=== PATIENT | female | born 1995 | race African-American/Black ===

== ENCOUNTER 2019-03-16 11:36 | Emergency (ER) | payer SELFPAY ==
[2019-03-16 12:19] LABS: #Basophils 0.1 thou/uL (0.0-0.2); #Eosinphils 0.1 thou/uL (0.0-0.7); #Lymphocytes 2.2 thou/uL (1.20-3.40); #Monocytes 0.6 thou/uL (0.11-0.59); #Neutrophils 3.8 thou/uL (1.40-6.50); %Basophils 0.8 % (0.0-1.0); %Eosinophils 1.9 % (0.0-10.0); %Lymphocytes 32.1 % (21.0-51.0); %Monocytes 8.2 % (0.0-10.0); %Neutrophils 57.1 % (42.0-75.0); Hemoglobin 15.1 g/dL (12.0-16.0); Mean Corpuscular HGB CONC 33.2 g/dL (32.0-36.0); Mean Corpuscular Hemoglobin 29.9 pg (27.0-31.0); Mean Platelet Volume 8.9 fL (7.4-10.4); Platelet Count 122 thou/uL (130-400); RBC Distribution Width 12.4 % (11.5-14.5); Red Blood Cell (RBC) Count 5.07 mill/uL (4.20-5.40); White Blood Cell (WBC) Count 6.7 thou/uL (4.8-10.8)
[2019-03-16 12:25] LABS: Bilirubin Negative (Negative); Blood, Urine Negative (Negative); Clarity Clear (Clear); Glucose, Urine (Dipstick) Normal (Negative); Leukocyte Negative Leu/uL (Negative); Nitrite Negative (Negative); Protein, Urine (Dipstick) Negative (Neg-Trace); Urobilinogen Normal mg/dL (Less than 2)
[2019-03-16 12:28] LABS: Pregnancy Test - Urine (BHCG) Negative (Negative); Pregu Control Background? CLEAR/WHITE (CLR/WHITE); Pregu Control Bar Appear? YES (CONTROL BAR)
[2019-03-16 12:40] LABS: ALT (SGPT) 10 U/L (8-55); AST (SGOT) 13 U/L (5-34); Albumin 3.4 g/dL (3.5-5.0); Alkaline Phosphatase 44 U/L (40-150); Anion Gap 10 mmol/L (10-20); BUN (Urea Nitrogen) 7 mg/dL (7.0-18.7); Bilirubin, Total Less than 0.2 mg/dL (0.2-1.2); Calc. Creatinine Clearance 0 mL/min (70-130); Calcium 8.7 mg/dL (7.8-10.44); Carbon Dioxide 22 mmol/L (22-29); Chloride 108 mmol/L (98-107); Estimated GFR-MDRD Greater than 90; Globulin 1.8 g/dL (2.4-3.5); Glucose 87 mg/dL (70-105); Potassium 3.8 mmol/L (3.5-5.1); Protein, Total 5.2 g/dL (6.0-8.3); Sodium 136 mmol/L (136-145)
== END 2019-03-16 13:00 | disposition home or self-care (01) ==
LOC: ERS 11:36
DX: R55 Syncope and collapse (principal)
CPT/HCPCS: 36415; 80053; 81003; 81025; 85025; 93005

== ENCOUNTER 2020-03-03 03:50 | Emergency (ER) | payer SELFPAY ==
[2020-03-03] MEDS ORDERED: Fluorescein Opthalmic Strip ONE (04:08)
[2020-03-03] MEDS ORDERED: Proparacaine 0.5% Opth 15 ML BOT ONE (04:08)
== END 2020-03-03 04:23 | disposition home or self-care (01) ==
LOC: ERS 03:50
DX: H57.12 Ocular pain, left eye (principal); W21.05XA Struck by basketball, initial encounter; Y93.67 Activity, basketball
CPT/HCPCS: 99283

== ENCOUNTER 2020-08-09 13:52 | Emergency (ER) | payer SELFPAY ==
[2020-08-09] MEDS ORDERED: Ondansetron ODT 4 MG TAB ONE ×2 (13:56→16:28)
[2020-08-09] MEDS ORDERED: Haloperidol Lactate 5 MG/ML VIAL ONE (16:19)
[2020-08-09] MEDS ORDERED: Metoclopramide HCl 10 MG/2 ML VIAL ONE (16:19)
[2020-08-09] MEDS ORDERED: diphenhydrAMINE 50 MG/ML VIAL ONE (16:28)
[2020-08-09 16:39] LABS: #Lymphocytes 1.1 thou/uL (1.20-3.40); #Monocytes 0.4 thou/uL (0.11-0.59); #Neutrophils 7.9 thou/uL (1.40-6.50); %Basophils 0.4 % (0.0-1.0); %Eosinophils 0.1 % (0.0-10.0); %Lymphocytes 11.4 % (21.0-51.0); %Monocytes 4.5 % (0.0-10.0); %Neutrophils 83.6 % (42.0-75.0); Hemoglobin 13.8 g/dL (12.0-16.0); Mean Corpuscular HGB CONC 33.2 g/dL (32.0-36.0); Mean Corpuscular Hemoglobin 28.8 pg (27.0-31.0); Mean Corpuscular Volume 86.9 fL (78.0-98.0); Mean Platelet Volume 9.2 fL (7.4-10.4); Platelet Count 187 thou/uL (130-400); RBC Distribution Width 12.6 % (11.5-14.5); Red Blood Cell (RBC) Count 4.79 mill/uL (4.20-5.40); White Blood Cell (WBC) Count 9.4 thou/uL (4.8-10.8)
[2020-08-09 16:56] LABS: BHCG - Serum Negative (NEGATIVE); Pregs Control Background? CLEAR/WHITE (CLR/WHITE); Pregs Control Bar Appear? YES (CONTROL BAR)
[2020-08-09 16:58] LABS: ALT (SGPT) 17 U/L (8-55); AST (SGOT) 18 U/L (5-34); Albumin 4.7 g/dL (3.5-5.0); Alkaline Phosphatase 79 U/L (40-110); Anion Gap 14 mmol/L (10-20); BUN (Urea Nitrogen) 7 mg/dL (7.0-18.7); Bilirubin, Total 0.4 mg/dL (0.2-1.2); CK (CPK) 229 U/L (29-168); Calc. Creatinine Clearance 0 mL/min (70-130); Calcium 9.6 mg/dL (7.8-10.44); Carbon Dioxide 27 mmol/L (22-29); Chloride 105 mmol/L (98-107); Globulin 3.4 g/dL (2.4-3.5); Glucose 102 mg/dL (70-105); Lipase 17 U/L (8-78); Potassium 3.9 mmol/L (3.5-5.1); Protein, Total 8.1 g/dL (6.0-8.3); Sodium 142 mmol/L (136-145)
== END 2020-08-09 17:24 | disposition home or self-care (01) ==
LOC: ERS 13:52
DX: E86.0 Dehydration (principal); R11.2 Nausea with vomiting, unspecified
CPT/HCPCS: 80053; 82550; 83690; 84703; 85025; 96365; 96375; J1200; J1630; J2765; Q0162

== ENCOUNTER 2021-10-28 23:51 | Emergency (ER) | payer OTHER, SELFPAY | END 2021-10-29 00:30 | LOC: ERS 23:51 | DX: S00.83XA Contusion of other part of head, initial encounter (principal); S09.90XA Unspecified injury of head, initial encounter; V49.40XA Driver injured in collision with unspecified motor vehicles in traffic accident, initial encounter | CPT/HCPCS: 99283 ==

== ENCOUNTER 2022-07-03 16:57 | Emergency (ER) | payer MEDICAID ==
[2022-07-03 18:44] LABS: #Eosinphils 0.2 thou/uL (0.0-0.7); #Lymphocytes 0.7 thou/uL (1.20-3.40); #Monocytes 0.6 thou/uL (0.11-0.59); #Neutrophils 5.4 thou/uL (1.40-6.50); %Basophils 0.4 % (0.0-1.0); %Eosinophils 2.7 % (0.0-10.0); %Monocytes 8.6 % (0.0-10.0); %Neutrophils 78.3 % (42.0-75.0); Hemoglobin 10.9 g/dL (12.0-16.0); Mean Corpuscular HGB CONC 33.8 g/dL (32.0-36.0); Mean Corpuscular Hemoglobin 30.4 pg (27.0-31.0); Mean Corpuscular Volume 89.9 fl (78.0-98.0); Mean Platelet Volume 8.9 fL (7.4-10.4); Platelet Count 132 10x3/uL (130-400); RBC Distribution Width 13.1 % (11.5-14.5); White Blood Cell (WBC) Count 6.9 10x3/uL (4.8-10.8)
[2022-07-03 18:55] LABS: Bilirubin Negative (Negative); Blood, Urine 1+ (Negative); Clarity Turbid (Clear); Glucose, Urine (Dipstick) Normal (Negative); Ketone, Urine Negative (Negative); Leukocyte Negative Leu/uL (Negative); Nitrite Negative (Negative); Protein, Urine (Dipstick) 30 mg/dL (Neg-Trace); RBC/HPF 0-3 HPF (0-3); Renal Epithelial 0-3 HPF (None Seen); Urobilinogen 3 mg/dL (Less than 2); WBC/HPF 0-3 HPF (0-3)
[2022-07-03 19:06] LABS: Bacteria/HPF 3+ HPF (None Seen)
[2022-07-03 19:08] LABS: ALT (SGPT) 27 U/L (8-55); AST (SGOT) 26 U/L (5-34); Albumin 3.5 g/dL (3.5-5.0); Alkaline Phosphatase 63 U/L (40-110); Anion Gap 11 mmol/L (10-20); BUN (Urea Nitrogen) 4 mg/dL (7.0-18.7); Bilirubin, Total 0.3 mg/dL (0.2-1.2); Calc. Creatinine Clearance 0 mL/min (70-130); Calcium 9.2 mg/dL (7.8-10.44); Carbon Dioxide 24 mmol/L (22-29); Chloride 102 mmol/L (98-107); Estimated GFR 127; Globulin 3.2 g/dL (2.4-3.5); Glucose 80 mg/dL (70-105); Lipase 34 U/L (8-78); Potassium 3.6 mmol/L (3.5-5.1); Protein, Total 6.7 g/dL (6.0-8.3); Sodium 133 mmol/L (136-145)
== END 2022-07-03 20:33 | disposition left against medical advice (07) ==
LOC: ERS 16:57
DX: O26.892 Other specified pregnancy related conditions, second trimester (principal); O26.612 Liver and biliary tract disorders in pregnancy, second trimester; Z3A.21 21 weeks gestation of pregnancy
CPT/HCPCS: 36415; 76705; 80053; 81003; 81015; 83690; 85025

== ENCOUNTER 2024-06-02 19:43 | Emergency (ER) | payer OTHER, SELFPAY | END 2024-06-02 23:40 | disposition left against medical advice (07) | LOC: ERS 19:43 | DX: Z53.21 Procedure and treatment not carried out due to patient leaving prior to being seen by health care provider (principal) ==

== ENCOUNTER 2024-08-02 21:40 | Observation (INO) | payer SELFPAY ==
[2024-08-02 22:28] LABS: Bacteria/HPF 3+ HPF (None Seen); Bilirubin Negative (Negative); Blood, Urine Trace (Negative); CAUTI Indications for Culture Pelvic or flank pain; Clarity Extra Turbid (Clear); Glucose, Urine (Dipstick) Normal (Negative); Ketone, Urine Negative (Negative); Leukocyte 25 Leu/uL (Negative); Nitrite 1+ (Negative); Protein, Urine (Dipstick) 100 mg/dL (Neg-Trace); Specific Gravity, Urine 1.025 (1.002-1.036); Squamous Epithelial Greater than 50 HPF (0-3); pH, Urine 6.5 (5.0-9.0)
[2024-08-02 22:29] LABS: Urine Culture Reflex Yes Yes
[2024-08-02] MEDS ORDERED: Morphine 4 MG/ML VIAL ONE (22:47)
[2024-08-02] MEDS ORDERED: Ondansetron PF 4 MG/2 ML Vial ONE (22:47)
[2024-08-02 23:26] LABS: #Basophils Less than 0.03 10x3/uL (0.0-0.2); %Basophils 0.2 % (0.0-1.0); %Eosinophils 1.3 % (0.0-10.0); %Lymphocytes 30.1 % (21.0-51.0); %Monocytes 7.7 % (0.0-10.0); %Neutrophils 60.4 % (42.0-75.0); Hematocrit 33.1 % (36.0-47.0); Hemoglobin 10.1 g/dL (12.0-16.0); Mean Corpuscular HGB CONC 30.5 g/dL (32.0-36.0); Mean Corpuscular Hemoglobin 22.4 pg (27.0-31.0); Mean Corpuscular Volume 73.6 fL (78.0-98.0); Mean Platelet Volume 11.7 fL (7.4-10.4); Platelet Count 218 10x3/uL (130-400); RBC Distribution Width 16.7 % (11.5-14.5)
[2024-08-02 23:28] LABS: BHCG - Serum Negative (NEGATIVE); Pregs Control Background? CLEAR/WHITE (CLR/WHITE); Pregs Control Bar Appear? YES (CONTROL BAR)
[2024-08-02 23:34] LABS: ALT (SGPT) 9 U/L (Less than 34); AST (SGOT) 24 U/L (11-34); Albumin 3.9 g/dL (3.1-4.5); Alkaline Phosphatase 70 U/L (40-110); Anion Gap 15 mmol/L (10-20); BUN (Urea Nitrogen) 7 mg/dL (7.0-18.7); Bilirubin, Total 0.1 mg/dL (0.3-1.2); Calc. Creatinine Clearance 0 mL/min (70-130); Calcium 9.2 mg/dL (7.8-10.44); Carbon Dioxide 24 mmol/L (22-29); Chloride 107 mmol/L (98-107); Estimated GFR 98; Globulin 3.4 g/dL (2.4-3.5); Glucose 119 mg/dL (70-105); Lipase 30 U/L (8-78); Potassium 3.5 mmol/L (3.5-5.1); Protein, Total 7.3 g/dL (6.0-8.3); Sodium 142 mmol/L (136-145)
[2024-08-02 23:46] LABS: Hypochromia SLIGHT = 6-15 cells HPF (0-5); Microcytosis SLIGHT = 6-15 cells HPF (0-5); Platelet Adequacy Comment Platelets Normal
[2024-08-02] MEDS ORDERED: Sodium Chloride 0.9% 100 ML ONE (23:48)
[2024-08-02] MEDS ORDERED: Piperacillin/Tazobactam 3.375 GM VIAL ONE (23:48)
[2024-08-03] MEDS ORDERED: Ondansetron PF 4 MG/2 ML Vial IVP PRN (00:15)
[2024-08-03] MEDS ORDERED: Dextrose 5% in Water 1,000 ML IV PRN (00:15)
[2024-08-03] MEDS ORDERED: Dextrose 50% Abboject 50 ML SYRINGE SLOW IVP PRN (00:15)
[2024-08-03] MEDS ORDERED: Glucagon 1 MG/ML KIT IM PRN (00:15)
[2024-08-03] MEDS: Sodium Chloride 0.9% 1,000 ML IV SCH (00:56)
[2024-08-03 01:52] VITALS: BMI 30.7
[2024-08-03] MEDS: Piperacillin/Tazobactam 3.375 GM in Sodium Chloride 0.9% 100 ML IVPB SCH (04:09)
[2024-08-03 06:12] LABS: #Basophils Less than 0.03 10x3/uL (0.0-0.2); %Basophils 0.3 % (0.0-1.0); %Eosinophils 0.6 % (0.0-10.0); %Lymphocytes 27.9 % (21.0-51.0); %Monocytes 8.2 % (0.0-10.0); %Neutrophils 62.6 % (42.0-75.0); Hematocrit 33.2 % (36.0-47.0); Hemoglobin 9.8 g/dL (12.0-16.0); Mean Corpuscular HGB CONC 29.5 g/dL (32.0-36.0); Mean Corpuscular Hemoglobin 22.4 pg (27.0-31.0); Mean Platelet Volume 11.4 fL (7.4-10.4); Platelet Count 218 10x3/uL (130-400); RBC Distribution Width 16.8 % (11.5-14.5); Red Blood Cell (RBC) Count 4.37 mill/uL (4.20-5.40)
[2024-08-03 06:36] LABS: ALT (SGPT) 8 U/L (Less than 34); AST (SGOT) 19 U/L (11-34); Albumin 3.5 g/dL (3.1-4.5); Alkaline Phosphatase 63 U/L (40-110); Anion Gap 12 mmol/L (10-20); BUN (Urea Nitrogen) 6 mg/dL (7.0-18.7); Bilirubin, Total 0.3 mg/dL (0.3-1.2); Calc. Creatinine Clearance 141 mL/min (70-130); Calcium 8.7 mg/dL (7.8-10.44); Carbon Dioxide 23 mmol/L (22-29); Chloride 110 mmol/L (98-107); Estimated GFR 102; Glucose 90 mg/dL (70-105); Potassium 4.2 mmol/L (3.5-5.1); Protein, Total 6.5 g/dL (6.0-8.3); Sodium 141 mmol/L (136-145)
[2024-08-03] MEDS ORDERED: traMADol HCl 50 MG TAB PO PRN ×2 (08:20→12:37)
[2024-08-03] MEDS: Famotidine/PF 20 mg/2ml Vial SLOW IVP SCH (08:54)
[2024-08-03] MEDS: Acetaminophen 500 MG TAB PO SCH ×2 (09:35→15:09)
[2024-08-03] MEDS: Ketorolac Tromethamine 30 MG (1 mL) VIAL IVP SCH (09:35)
[2024-08-03] MEDS: Scopolamine 1 mg/72 hour Patch TD SCH (09:36)
[2024-08-03] MEDS: FLU (Fluarix Triv) TS24-25(6MOS UP)/PF 45 MCG/0.5 ML Syringe IM ONE (09:36)
[2024-08-03] MEDS ORDERED: Piperacillin/Tazobactam 3.375 GM VIAL ONE (11:45)
[2024-08-03] MEDS ORDERED: Sodium Chloride 0.9% 100 ML ONE (11:46)
[2024-08-03] MEDS ORDERED: Bupivacaine 0.25% HCL 30 ML VIAL ONE (12:01)
[2024-08-03] MEDS ORDERED: EPINEPHrine 1 MG/ML VIAL ONE (12:01)
[2024-08-03] MEDS ORDERED: fentaNYL PF 100 MCG/2 ML SYRINGE ONE (12:21)
[2024-08-03] MEDS ORDERED: Dexmedetomidine 200 MCG/2 ML VIAL ONE ×2 (12:21→12:42)
[2024-08-03] MEDS ORDERED: PROPOFOL 40 ML ONE (12:22)
[2024-08-03] MEDS ORDERED: Midazolam HCl 2 mg/2 ml Vial ONE (12:22)
[2024-08-03] MEDS ORDERED: Dexamethasone 20 MG/5 ML VIAL ONE (12:26)
[2024-08-03] MEDS ORDERED: Lidocaine 2% PF 5 ML VIAL ONE (12:27)
[2024-08-03] MEDS ORDERED: Rocuronium Bromide 10 MG/ML (10ML VIAL) ONE (12:27)
[2024-08-03] MEDS ORDERED: Ibuprofen 600 MG TAB PO PRN (12:36)
[2024-08-03] MEDS ORDERED: Ondansetron PF 4 MG/2 ML Vial ONE (12:54)
[2024-08-03] MEDS ORDERED: SUGAMMADEX SODIUM 200 MG/2 ML VIAL ONE (12:56)
[2024-08-03] MEDS ORDERED: Ketorolac Tromethamine 30 MG (1 mL) VIAL ONE (13:03)
[2024-08-03] MEDS ORDERED: fentaNYL 50 mcg/mL 1 mL Vial ONE (14:05)
[2024-08-03] MEDS ORDERED: Ketorolac Tromethamine 30 MG (1 mL) VIAL IVP SCH (15:00)
[2024-08-03 18:32] VITALS: TEMP 97.6
[2024-08-03 18:33] VITALS: BP 135/76
== END 2024-08-03 18:33 | disposition home or self-care (01) ==
LOC: ERS 21:40 → INTOOBSV 23:58 → SURG A 23:58
PROVIDERS: ADMIT Specialist; ATTEND Specialist
PROC: 0FT44ZZ Resection of Gallbladder, Percutaneous Endoscopic Approach (ICD-10-PCS; principal; 2024-08-03)
DX: K80.12 Calculus of gallbladder with acute and chronic cholecystitis without obstruction (principal); Z87.59 Personal history of other complications of pregnancy, childbirth and the puerperium; Z79.1 Long term (current) use of non-steroidal anti-inflammatories (NSAID); Z79.899 Other long term (current) drug therapy
CPT/HCPCS: 36415; 76705; 80053; 81001; 83690; 84703; 85025; 87077; 87086; 87186; 88304; 96375; 96376; C1889; G0378; J0171; J0665; J1100; J1885; J2250; J2270; J2405; J2543; J2704; J3010; J3490; J7030